=== PATIENT | male | born 1990 | race Caucasian/White ===

== ENCOUNTER 2025-02-09 13:36 | Emergency (ER) | payer MEDICAID, SELFPAY ==
[2025-02-09 13:56] VITALS: PULSE 102; RESP 20; O2SAT 97
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
[2025-02-09 15:27] VITALS: BMI 22.7
[2025-02-09 15:45] VITALS: BP 130/79; PULSE 77; RESP 16; TEMP 36.7; O2SAT 100
== END 2025-02-09 16:58 ==
LOC: SERX 16:22
PROVIDERS: Emergency Provider Family Medicine
DX: Z02.89 Encounter for other administrative examinations (principal); M25.561 Pain in right knee; M25.562 Pain in left knee; M54.2 Cervicalgia; R10.20 Pelvic and perineal pain unspecified side; R51.9 Headache, unspecified; V23.49XA Other motorcycle driver injured in collision with car, pick-up truck or van in traffic accident, initial encounter
CPT/HCPCS: 70450; 71250; 72125; 73560; 74176; 83735; 84145; 87040; 99282